=== PATIENT | male | born 1970 | race Caucasian/White ===

== ENCOUNTER 2023-03-18 06:21 | Day surgery (SDC) | payer BC ==
[2023-03-18] MEDS ORDERED: Lidocaine 0.5% 50 ML SDV ONE (06:39)
[2023-03-18] MEDS ORDERED: Bacitracin Oint 1 GM U/D Packet ONE (06:39)
[2023-03-18] MEDS ORDERED: Bupivacaine 0.5%/EPINEPHrine 1:200,000 50 ML MDV ONE (06:40)
[2023-03-18] MEDS ORDERED: Lidocaine 1% with EPINEPHrine 1:100,000 50 ML MDV ONE (06:42)
[2023-03-18] MEDS ORDERED: Bupivacaine 0.5% 50 ML MDV ONE (06:42)
[2023-03-18] MEDS ORDERED: Acetaminophen 500 MG Tab PO ONE (06:45)
[2023-03-18] MEDS ORDERED: Lactated Ringers 1,000 ML IV SCH (07:00)
[2023-03-18] MEDS ORDERED: Midazolam 1 MG/ML 2 ML SDV ONE (07:21)
[2023-03-18] MEDS ORDERED: fentaNYL 100 MCG/2 ML SDV ONE (07:21)
[2023-03-18] MEDS ORDERED: Propofol 200 MG/20 ML SDV ONE ×2 (07:21→07:41)
[2023-03-18] MEDS ORDERED: ceFAZolin 2 GM in Premix Bag 1 BAG IV ONE (07:30)
[2023-03-18] MEDS ORDERED: ceFAZolin 2 GM in Sodium Chloride 0.9% 50 ML IV ONE (07:30)
== END 2023-03-18 10:13 | disposition home or self-care (01) ==
LOC: JP.SDS 06:21
PROVIDERS: ATTEND Student in an Organized Health Care Education/Training Program
DX: D17.0 Benign lipomatous neoplasm of skin and subcutaneous tissue of head, face and neck (principal); Z86.16 Personal history of COVID-19; Z88.5 Allergy status to narcotic agent
CPT/HCPCS: 13132; 21552; 88304; 88341; 88342; A9270; J2250; J2704; J3010; J3490; J7120